=== PATIENT | female | born 1990 | race Caucasian/White ===

== ENCOUNTER 2018-02-21 21:18 | Emergency (ER) | payer SELFPAY ==
[~2018-02-21] VITALS: Ht 157.5 cm; Wt 106.6 kg
--- NOTE | 2018-02-21 21:24 | NUR ---
PT TAKEN TO BED 7
[2018-02-21 21:25] VITALS: BP 150/79
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
[2018-02-21] MEDS ORDERED: LIDOCAINE 1% 500 MG/50 ML VIAL INJ SCH (21:45)
--- NOTE | 2018-02-21 21:49 | NUR ---
Dr. Jovel evaluating patient at bedside.
[2018-02-21] MEDS ORDERED: IBUPROFEN 800 MG TAB PO ONE (22:30)
[2018-02-21 22:40] VITALS: BP 134/74
== END 2018-02-21 21:24 | disposition home or self-care (01) ==
LOC: MED 21:18
DX: S61.211A Laceration without foreign body of left index finger without damage to nail, initial encounter (principal); W45.8XXA Other foreign body or object entering through skin, initial encounter; Y93.G3 Activity, cooking and baking; Y92.89 Other specified places as the place of occurrence of the external cause; Y99.8 Other external cause status
CPT/HCPCS: 12001; 90471; 90715; 99283; J2001